=== PATIENT | female | born 1975 ===

== ENCOUNTER 2021-12-07 14:59 | Emergency (ER) | payer OTHER ==
[~2021-12-07 14:59] MED LIST: BACTRIM DS TAB1 EACH PO; ZOFRAN4 MG PO
[2021-12-07] MEDS ORDERED: NORCO 5-325 TA1 EACH PO (18:09)
== END 2021-12-07 18:57 | disposition home or self-care (01) ==
LOC: FER 14:59
DX: S92.202A Fracture of unspecified tarsal bone(s) of left foot, initial encounter for closed fracture (principal); Z88.0 Allergy status to penicillin; Z88.5 Allergy status to narcotic agent; Z88.6 Allergy status to analgesic agent; V48.5XXA Car driver injured in noncollision transport accident in traffic accident, initial encounter; Y92.410 Unspecified street and highway as the place of occurrence of the external cause
CPT/HCPCS: 73610; 73630